=== PATIENT | male | born 1965 | race Caucasian/White ===

== ENCOUNTER → 2017-10-10 | Outpatient (CLI) | payer BC ==
[~2017-10-10] MED LIST: ASPIRIN 81MG TA81 MG PO; ATENOLOL25 MG PO; INSULIN ISOPHANE INJ; LEVEMIR 10100 UNITS/ SC; ZETIA10 MG PO; [UNRECOGNIZED DRUG - OTHER] INJ
--- NOTE | 2017-10-10 09:23 | CARDIOVASCULAR REPORT ---
"Venous Exam Indications: 729.5 Pain in limb. IMPRESSIONS 1. There is no evidence of significant Reflux. 2. No evidence of deep or superficial vein thrombosis involving the right lower extremity 3. No evidence of deep or superficial vein thrombosis involving the left lower extremity Complete lower extremity venous duplex evaluation. Doppler flow study including spectral analysis, color and dawson scale imaging. Location: Vascular laboratory. Patient status: Outpatient. Tables: Venous flow and imaging: + +-------+ + |Location |Overall|Flow properties | + +-------+ + |Right common femoral |Patent |Normal phasicity; spontaneous; | | | |normal augmentation; compressible| + +-------+ + |Right saphenofemoral junction|Patent |Compressible | + +-------+ + |Right profunda femoral |Patent |Compressible | + +-------+ + |Right femoral |Patent |Normal phasicity; spontaneous; | | | |normal augmentation; | | | |compressible; no reflux | + +-------+ + |Right greater saphenous |Patent |Normal phasicity; spontaneous; | | | |normal augmentation; compressible| + +-------+ + |Right popliteal |Patent |Normal phasicity; spontaneous; | | | |normal augmentation; compressible| + +-------+ + |Right posterior tibial |Patent |Compressible | + +-------+ + |Right peroneal |Patent |Compressible | + +-------+ + |Right gastrocnemius |Patent |Compressible | + +-------+ + |Right soleal |Patent |Compressible | + +-------+ + |Left common femoral |Patent |Normal phasicity; spontaneous; | | | |normal augmentation; compressible| + +-------+ + |Left saphenofemoral junction |Patent |Compressible | + +-------+ + |Left profunda femoral |Patent |Compressible | + +-------+ + |Left femoral |Patent |Normal phasicity; spontaneous; | | | |normal augmentation; compressible| + +-------+ + |Left greater saphenous |Patent |Normal phasicity; spontaneous; | | | |normal augmentation; compressible| + +-------+ + |Left popliteal |Patent |Normal phasicity; spontaneous; | | | |normal augmentation; compressible| + +-------+ + |Left posterior tibial |Patent |Compressible | + +-------+ + |Left peroneal |Patent |Compressible | + +-------+ + |Left gastrocnemius |Patent |Compressible | + +-------+ + |Left soleal |Patent |Compressible | + +-------+ + (Report amended ) Electronically signed by: Shant eMrlos [id number]"
--- NOTE | 2017-10-10 11:20 | RADIOLOGY REPORT PS360 ---
CHEST(2 VIEWS-NOT PORTABLE) HISTORY: ABNORMAL EKG..DYSPNEA ON EXERTION..RECENT SURGERY..V/Q [facility] ORDERING PHYSICIAN: Jamel Gomes MD PATIENT AGE: 51 years COMPARISON: None available FINDINGS: The cardiomediastinal silhouette and pulmonary vascularity are within normal limits. Increased density is present in the right lung base medially and may be related to an area of atelectasis, infiltrate, or fibrosis. There are no previous studies available for comparison.. No acute bony abnormalities. IMPRESSION: Parenchymal opacity in right lung base which may be due to atelectasis, infiltrate, or fibrosis
--- NOTE | 2017-10-10 15:16 | RADIOLOGY REPORT PS360 ---
NUC LUNG VENT PERFUSION HISTORY: ABN EKG, DYSPNEA, CHRONIC THROMBOEMBOLIC PULM HTN, DM ORDERING PHYSICIAN: Jamel Gomes MD PATIENT AGE: 51 years DOSE: 37.3 mCi technetium DTPA in healed 8.32 mCi technetium MAA IV COMPARISON: Radiograph of 10/10/2017 FINDINGS: There is normal distribution of radiopharmaceutical in both lungs on both the ventilation and perfusion images. No mismatch or matched defects are evident. IMPRESSION: Normal ventilation/perfusion lung scan. No evidence of pulmonary embolus
--- NOTE | 2017-10-10 17:04 | RADIOLOGY REPORT PS360 ---
PROCEDURE: 2-D M-mode and color Doppler study INDICATIONS FOR THE TEST: Chest pain COPD Heart Murmur Tobacco Smoking Palpitations Fatigue Syncope Edema HypertensionXDiabetes MellitusX Rheumatic Fever SOBXDOE Obesity Hyperlipidemia Family History HD Additional History AF,ABN EKG PATIENT INFORMATION HEIGHT: 71 WEIGHT:206 GENDER: Male B/P:154/94 2-D/M-MODE INTERPRETATION: 2-D MEASUREMENTS OBSERVED VALUES IN CMS Right Ventricular Dimension (RVDd) 1.7 Interventricular Septum (Thickness)(IVsd) 1.1 Left Ventricular Internal Dimensions(LVIDd) 5.2 Left Ventricular Posterior Wall (Thickness)(LVPWd) 1.2 Aortic Root 3.8 Aortic Cusp Separation 2.2 Left Atrial Dimensions (LAD) 3.6 2D 1. Left atrium is qualitatively mildly enlarged, left ventricle is normal size, there is mild concentric left ventricular hypertrophy, there is preserved left ventricular systolic function, visually estimated ejection fraction 55% with no obvious regional wall motion abnormality. 2. The right atrium and right ventricle are normal size and contractility. 3. The aortic valve is minimally thickened and fibrosed. 4. The mitral and tricuspid valve leaflets are minimally thickened. 5. The pulmonic valve is poorly visualized. 6. No significant pericardial effusion noted. DOPPLER INTERROGATION: Doppler interrogation of the aortic, mitral and tricuspid valve reveals presence of mild mitral and tricuspid regurgitation, tricuspid regurgitant jet velocity is insufficient for calculation of the right ventricular systolic pressure, grade 1 diastolic dysfunction seen with tissue Doppler evidence of raised left atrial pressure. CONCLUSION: 1. Mildly left atrium, normal left ventricular size, mild concentric left ventricular hypertrophy, preserved left ventricular systolic function, visually estimated ejection fraction 55% with no obvious regional wall motion abnormality, grade 1 diastolic dysfunction seen with tissue Doppler evidence of raised left atrial pressure. 2. Mild mitral and tricuspid regurgitation. 3. No significant pericardial effusion noted.
== END ==
LOC: RT 07:54 → RAD 10:00
DX: R94.31 Abnormal electrocardiogram [ECG] [EKG] (principal); R06.09 Other forms of dyspnea; I27.0 Primary pulmonary hypertension; I10 Essential (primary) hypertension; I48.0 Paroxysmal atrial fibrillation; E11.9 Type 2 diabetes mellitus without complications; M79.604 Pain in right leg; M79.605 Pain in left leg
CPT/HCPCS: A9540; A9567

== ENCOUNTER 2017-10-15 07:35 | Day surgery (SDC) | payer BC ==
[2017-10-15 08:13] LABS: LYMPH # 1.6 K/mm3 (0.7-4.5); LYMPH % 25.3 % (10-50)
[2017-10-15 08:23] LABS: BUN 13 mg/dL (7-18)
[2017-10-15 08:25] LABS: GFR (ESTIMATED) 102 ML/MIN (>60)
--- NOTE | 2017-10-15 13:38 | RADIOLOGY REPORT PS360 ---
CARDIAC CATHETERIZATION DATE OF CATHETERIZATION:10/15/2017 11:35 AM PROCEDURES: 1. Right heart catheterization 2. Left heart catheterization 3. Left ventriculogram 4. Selective coronary angiogram INDICATION FOR TEST: 1. Pulmonary hypertension 2. Shortness of breath 3. Angina pectoris 4. Numerous risk factors for coronary artery disease including insulin requiring diabetes 5. Preoperative evaluation for fifth total hip replacement surgery Informed consent was obtained prior to the procedure. COMPLICATIONS: None ESTIMATED BLOOD LOSS: Less than 10 ml. TECHNIQUE: One percent lidocaine used to anesthetize the right anterior aspect of the neck. The right internal jugular vein was accessed via the Seldinger technique and a 7 Armenian sheath was placed in the right internal jugular vein. One percent lidocaine used to anesthetize the right anterior aspect of the wrist. The right radial artery was accessed via the Seldinger technique. A 6 Armenian sheath was placed in the right radial artery. 2.5 mg of verapamil, 800 mcg of nitroglycerin and 5000 U Heparin were given through the arterial sheath. The trap catheter was also used to perform left heart catheterization left ventriculogram and selective coronary angiogram. A Gunn[place]-Gilberto catheter was in placed in the internal jugular venous sheath and right heart catheterization was performed.. At the end of the procedure the patient was transferred to the post-op holding area in stable condition for arterial sheath removal. ANGIOGRAPHIC RESULTS: 1. The left main artery normal 2. The left anterior descending artery normal 3. The circumflex artery dominant normal 4. The right coronary artery normal 5. The TANG ventriculogram reveals slightly hyperdynamic 75% 6. The left ventricular end-diastolic pressure 10 mmHg 7. Right atrial pressure 8 mmHg 8. Pulmonary artery pressure 30/15 9. Pulmonary artery occlusion pressure 10 mmHg 10. Right atrial and pulmonary artery saturation both 81% IMPRESSION: 1. Normal coronary arteries. 2. Slightly hyperdynamic ejection fraction consistent with hypertensive heart disease 3. Mild pulmonary hypertension PLAN: 1. Medical management 2. Risk factor modification 3. Patient would probably benefit from better blood pressure control and or beta blockers combined with calcium channel blockers 4. LDL less than 55
[2017-10-15 15:17] VITALS: BP 149/81
[2017-10-15 16:01] LABS: ARTERIAL O2 SAT CATH LAB 81 % (90-100); VENOUS O2 SAT CATH LAB 81 % (75-80)
== END 2017-10-15 15:19 | disposition home or self-care (01) ==
LOC: CATHLAB 07:35
PROVIDERS: Internal Medicine
PROC: B2111ZZ Fluoroscopy of Multiple Coronary Arteries using Low Osmolar Contrast (ICD-10-PCS; 2017-10-15)
PROC: B2151ZZ Fluoroscopy of Left Heart using Low Osmolar Contrast (ICD-10-PCS; 2017-10-15)
PROC: 4A023N8 Measurement of Cardiac Sampling and Pressure, Bilateral, Percutaneous Approach (ICD-10-PCS; principal; 2017-10-15 10:00)
DX: I27.20 Pulmonary hypertension, unspecified (principal); R07.9 Chest pain, unspecified; E11.9 Type 2 diabetes mellitus without complications; Z79.4 Long term (current) use of insulin; I11.9 Hypertensive heart disease without heart failure; R06.09 Other forms of dyspnea
CPT/HCPCS: C1725; C1769; C1894; J1644; Q9967